=== PATIENT | female | born 1985 | race Caucasian/White ===

== ENCOUNTER 2020-01-19 18:58 | Outpatient (CLI) | payer OTHER ==
--- NOTE | 2020-01-19 22:16 | Ultrasound Report ---
Reason: IRREGULAR MENSTRUATION Procedure Date: 01/19/2020 Accession Number: [id number] / [id number] Procedure: US - Pelvic w/Transvaginal CPT Code: Final Report FULL RESULT: EXAM: PELVIC ULTRASOUND EXAM DATE: 01/19/2020 08:30 PM. CLINICAL HISTORY: IRREGULAR MENSTRUATION. COMPARISON: None. TECHNIQUE: Realtime transabdominal pelvic scan performed to identify the uterus and adnexa and as an overview of other pelvic structures, followed by transvaginal scan to provide greater detail of the uterus and adnexa, with static image documentation. FINDINGS: Uterus: 9.8 x 3.8 x 4.0 cm, volume 77 cc. Anteverted position. Normal overall size and echotexture. Masses: Two discrete uterine masses are seen consistent with leiomyomas. A right fundal subserosal fibroid measures 3.1 x 2.3 x 1.9 cm. A posterior intramural leiomyoma measures 2.3 x 2.1 x 2.1 cm. This abuts but does not distort the endometrial echo complex. Endometrium: 3 mm. Normal. Cervix: Unremarkable. Right Ovary: 4.9 x 3.8 x 3.8 cm, volume 38 cc. Normal echotexture and blood flow, with 3.2 x 2.4 x 3.0 cm cyst, with questionable area of mural nodularity. Left Ovary: 6.0 x 4.0 x 3.4 cm, volume 43 cc. Color Doppler flow is demonstrated, however there is a 3.8 x 3.2 x 3.1 cm mass with increased echoes that may represent some fat. The mass is not seen in entirety. Separate from the ovary there is a small cyst measuring 1.3 x 1.0 x 0.9 cm. Only seen on transabdominal imaging. Free Fluid: Trace Other: None. IMPRESSION: 1. Two fibroids are identified, as above. Endometrium is normal in thickness. 2. 3.8 cm mass in the left ovary is consistent with a dermoid. Consider MRI of the pelvis to confirm fat within the mass. Follow-up in one year if no intervention. 3. 3.2 cm cyst in the right ovary with a questionable area of eccentric mural nodularity. Recommend follow-up ultrasound in 6-12 weeks if no other imaging is performed in the interim. [facility]
== END 2020-01-19 18:59 | disposition home or self-care (01) ==
LOC: DI 18:58
PROVIDERS: ATTEND Advanced Practice Midwife
DX: N92.6 Irregular menstruation, unspecified (principal); D25.1 Intramural leiomyoma of uterus; D25.2 Subserosal leiomyoma of uterus; N83.202 Unspecified ovarian cyst, left side; N83.201 Unspecified ovarian cyst, right side; N83.8 Other noninflammatory disorders of ovary, fallopian tube and broad ligament
CPT/HCPCS: 76830; 76856

== ENCOUNTER 2020-02-23 17:08 | Outpatient (CLI) | payer OTHER ==
--- NOTE | 2020-02-29 09:02 | Ultrasound Report ---
Reason: ovarian cysts Procedure Date: 02/23/2020 Accession Number: [id number] / [id number] Procedure: US - Pelvic w/Transvaginal CPT Code: Final Report FULL RESULT: EXAM: PELVIC ULTRASOUND EXAM DATE: 02/23/2020 07:00 PM. CLINICAL HISTORY: Ovarian cysts. COMPARISON: PELVIC W/TRANSVAGINAL 01/19/2020 7:42 PM. TECHNIQUE: Realtime transabdominal pelvic scan performed to identify the uterus and adnexa and as an overview of other pelvic structures, followed by transvaginal scan to provide greater detail of the uterus and adnexa, with static image documentation. FINDINGS: Uterus: 10.1 x 3.8 x 5.1 cm, volume 102 cc, previously 77 cc. Anteverted position. Normal overall size and echotexture. Masses: 1. Right fundal intramural/subserosal fibroid 3.1 x 1.9 x 1.7 cm, previously 3.1 x 2.3 x 1.9 cm. 2. Posterior body intramural/subserosal fibroid 2.9 x 2.2 x 2.7 cm, previously 2.3 x 2.1 x 2.1 cm. Endometrium: 6 mm. Normal. Cervix: Unremarkable. Right Ovary: 6.3 x 3.8 x 4.0 cm, volume 50.7 cc. Normal echotexture and blood flow. There is a simple appearing cyst measuring 3.2 x 3.5 x 3.5 cm, not definitely seen previously. There is an additional cyst measuring 2.0 x 1.7 x 2.3 cm with 6 x 5 x 8 mm mural nodularity. This likely corresponds to previously seen cyst measuring 3.2 x 2.4 x 3.0 cm with similar mural nodularity. Unable to evaluate internal vascularity on the images provided. Left Ovary: 5.1 x 3.2 x 4.8 cm, volume 39.9 cc. Normal echotexture and blood flow. Paraovarian cyst measuring 1.6 x 1.2 x 1.4 cm, previously 1.3 x 1.0 x 0.9 cm. Next echogenicity left ovarian mass measuring 3.6 x 3.7 x 3.4 cm (24 cc), previously measured at 3.8 x 3.2 x 3.1 cm (20 cc). Free Fluid: None. Other: None. IMPRESSION: 1. Left ovarian 3.6 cm mixed echogenicity mass, possibly dermoid, may be slightly increased in volume. MRI of the pelvis could be considered for further imaging evaluation. If no intervention, recommend continued ultrasound follow-up in 1 year. 2. Complex right ovarian cyst measuring up to 2.3 cm, previously 3.2 cm, with decreased cystic component however similar solid-appearing mural nodularity. Consider follow-up ultrasound in 6-12 weeks or alternatively pelvic MRI for further imaging evaluation. 3. Simple appearing 3.5 cm right ovarian cyst and small left paraovarian cyst, benign finding in the physiologic size range. No follow-up needed. 4. Uterine fibroids. [facility]
== END 2020-02-23 17:09 | disposition home or self-care (01) ==
LOC: DI 17:08
PROVIDERS: ATTEND Obstetrics & Gynecology
DX: N83.9 Noninflammatory disorder of ovary, fallopian tube and broad ligament, unspecified (principal); N83.201 Unspecified ovarian cyst, right side; N83.202 Unspecified ovarian cyst, left side; D25.9 Leiomyoma of uterus, unspecified
CPT/HCPCS: 76830; 76856

== ENCOUNTER 2020-03-07 11:14 | Outpatient (CLI) | payer OTHER | END 2020-03-07 23:59 | disposition home or self-care (01) | LOC: LAB.WCP 11:14 | PROVIDERS: ATTEND Obstetrics & Gynecology | DX: N83.209 Unspecified ovarian cyst, unspecified side (principal) | CPT/HCPCS: 36415; 82378; 86304 ==